=== PATIENT | male | born 2000 | race Two or more races ===

== ENCOUNTER 2019-01-10 16:03 | Emergency (ER) | payer OTHER ==
[~2019-01-10] VITALS: Ht 172.7 cm; Wt 59.0 kg
[2019-01-10 16:22] VITALS: BP 107/42
--- NOTE | 2019-01-10 16:24 | NUR ---
ED Nurse Note: pt walked in to ER c/o Rt wrist pain 08/10. per pt, he uses his Rt wrist at work a lot and it has pulling sensation and painful. pt aao x 4, calm and cooperative, skin clean and intact. Rt wrist has no swelling, redness noted.
--- NOTE | 2019-01-10 16:29 | Emergency Room Report ---
History of Present Illness General Chief Complaint: Upper Extremity Injury Source: Patient Present Illness HPI 18-year-old male with no significant past medical history here complaining of pain in right wrist after impact with an object at work the incident occurred today. Patient is rating the pain 5 out of 10, intermittent, with radiation to right forearm and right ulnar side, denying tingling and numbness. Has not taken any medication. Denies any alleviating factors or worsening symptoms. Denies all others injury, chest pain, palpitation, SOB, no other associated symptoms. Allergies: Coded Allergies: No Known Allergies (Unverified , 01/10/19) Patient History Past Medical History: see triage record Past Surgical History: unable to obtain Pertinent Family History: none Immunizations: UTD Reviewed Nursing Documentation: PMH: Agreed; PSxH: Agreed Nursing Documentation-PMH Past Medical History: No Stated History Review of Systems All Other Systems: negative except mentioned in HPI Physical Exam Vital Signs Date Time Temp Pulse Resp B/P (MAP) Pulse Ox O2 Delivery O2 Flow Rate FiO2 01/10/19 16:13 98.2 60 17 107/42 97 Room Air Sp02 EP Interpretation: reviewed, normal General Appearance: normal inspection, well appearing, no apparent distress Head: normocephalic, atraumatic Eyes: bilateral eye normal inspection, bilateral eye PERRL ENT: normal ENT inspection, normal pharynx Neck: normal inspection, supple Respiratory: normal inspection, lungs clear, no wheezing Cardiovascular #1: normal inspection, regular rate, rhythm, no edema Cardiovascular #2: 2+ radial (R), 2+ radial (L) Gastrointestinal: normal inspection, non tender, soft Rectal: deferred Genitourinary: no CVA tenderness Musculoskeletal: back normal, digits/nails normal, gait/station normal, swelling - right ulnar wrist Neurologic: normal inspection, alert, oriented x3 Psychiatric: normal inspection, judgement/insight normal Skin: normal inspection, normal color, warm/dry Lymphatic: normal inspection, no adenopathy Medical Decision Making PA Attestation All diagnosis and treatment plans were reviewed and discussed with my supervising physician ER Course 18-year-old male with no significant past medical history here complaining of pain in right wrist after impact with an object at work the incident occurred today. Patient is rating the pain 5 out of 10, intermittent, with radiation to right forearm and right ulnar side, denying tingling and numbness. Has not taken any medication. Denies any alleviating factors or worsening symptoms. Denies all others injury, chest pain, palpitation, SOB, no other associated symptoms. Ddx considered but are not limited to right wrist contusion, right wrist sprain , right wrist fracture Vital signs: are WNL, pt. is afebrile H&PE are most consistent with right wrist contusion ORDERS: x-ray of right wrist complete, ibuprofen 600 ED INTERVENTIONS: None required at this time. DISCHARGE: At this time pt. is stable for d/c to home. Will provide printed patient care instructions, and any necessary prescriptions. Care plan and follow up instructions have been discussed with the patient prior to discharge. patient is a very that the radiologist report will be made ready later today and will be called with the results patient understands that there might be new findings of the x-ray. per Radiologist Other X-Ray Diagnostic Results Other X-Ray Diagnostic Results : X-Ray ordered: right wrist # of Views/Limited Vs Complete: 3 View Indication: Swelling EP Interpretation: Yes PA Xray: Interpretation reviewed, by supervising MD, and agrees with findings. Interpretation: no dislocation, no soft tissue swelling, no fractures Impression: No acute disease Electronically Signed by: Cj Coffey PA-C Last Vital Signs Date Time Temp Pulse Resp B/P (MAP) Pulse Ox O2 Delivery O2 Flow Rate FiO2 01/10/19 16:22 98.2 81 17 107/42 97 Room Air Disposition: HOME, SELF-CARE Condition: Stable Patient Instructions: Contusion, [id number], Wrist Pain, [id number] Additional Instructions: take medication as directed, where one of those wristbands to prevent from certain motions, alternatives and icing and heating, if any of symptoms initially tingling or numbness follow with the primary care provider for further imaging such as CT scan or MRI Cj Barriga Jan 10, 2019 16:29
[2019-01-10] MEDS ORDERED: IBUPROFEN600 MG ORAL (16:46)
[2019-01-10 16:57] VITALS: BP 107/42
--- NOTE | 2019-01-10 16:58 | NUR ---
ED Nurse Note: Pt cleared DC by ERPA. Pt is A/Ox4, accompanied by parent, VSS, DC instruction and prescriptions given, pt and parent verbalized understanding. ID wristband removed. All belongings given to pt. Pt ambulated out of ER with steady gait accompanied by parent.
--- NOTE | 2019-01-11 10:54 | Diagnostic Imaging Report ---
Clinical Indication:Trauma, pain Technique: 3 views of the right wrist Comparison: None Findings: No acute fractures. No dislocations. The joint spaces are preserved. No radiopaque foreign body Impression: Negative
== END 2019-01-10 17:00 | disposition home or self-care (01) ==
LOC: EMR 16:45
DX: S60.211A Contusion of right wrist, initial encounter (principal); W22.8XXA Striking against or struck by other objects, initial encounter; Y92.89 Other specified places as the place of occurrence of the external cause; Y99.0 Civilian activity done for income or pay
CPT/HCPCS: 99283